=== PATIENT | male | born 1960 | race Caucasian/White ===

== ENCOUNTER → 2017-04-24 | Outpatient (CLI) | payer OTHER ==
[~2017-04-24] MED LIST: FLONASE SENSIM9.9 ML BOTH NARES; LITE COAT ASPI325 M1 PO; ZESTRIL10 MG PO; ZYLOPRIM100 MG PO
== END | disposition home or self-care (01) ==
LOC: CDC 04-14 10:30
DX: Z01.810 Encounter for preprocedural cardiovascular examination (principal); M79.9 Soft tissue disorder, unspecified
CPT/HCPCS: 93000

== ENCOUNTER 2017-04-29 05:22 | Day surgery (SDC) | payer OTHER ==
[~2017-04-29] VITALS: Ht 179.1 cm; Wt 117.1 kg
[2017-04-29 07:00] VITALS: BP 138/87
[2017-04-29] MEDS ORDERED: ULTRAM50 MG PO (09:53)
[2017-04-29 10:29] VITALS: BP 152/89
[2017-04-29 11:21] VITALS: BP 143/92
== END 2017-04-29 11:39 | disposition home or self-care (01) ==
LOC: SDC 05:22
DX: D17.21 Benign lipomatous neoplasm of skin and subcutaneous tissue of right arm (principal); D17.1 Benign lipomatous neoplasm of skin and subcutaneous tissue of trunk; M10.9 Gout, unspecified; I10 Essential (primary) hypertension; F41.8 Other specified anxiety disorders
CPT/HCPCS: 88304; J0690; J2250; J3010

== ENCOUNTER 2017-04-29 14:34 | Day surgery (SDC) | payer OTHER ==
[~2017-04-29] VITALS: Ht 177.8 cm; Wt 130.0 kg
[~2017-04-29 14:34] MED LIST changes: +ULTRAM50 MG PO
[2017-04-29 14:46] VITALS: BP 105/60
[2017-04-29 16:58] VITALS: BP 138/92
== END 2017-04-29 17:09 | disposition home or self-care (01) ==
LOC: SDC 14:34
PROC: 0J9D0ZZ Drainage of Right Upper Arm Subcutaneous Tissue and Fascia, Open Approach (ICD-10-PCS; principal; 2017-04-29)
DX: L76.32 Postprocedural hematoma of skin and subcutaneous tissue following other procedure (principal); Z98.890 Other specified postprocedural states
CPT/HCPCS: J0690